=== PATIENT | female | born 1980 | race Asian ===

== ENCOUNTER → 2016-11-28 | Outpatient (CLI) | payer BC ==
[2015-03-08 23:28] VITALS: BP 106/69
--- NOTE | 2016-11-28 16:31 | RAD ---
DATE: November 28, 2016 EXAM: DIGITAL DIAGNOSTIC BILATERAL, ultrasound BREAST RIGHT HISTORY: Right breast nodules. Follow-up study. COMPARISON: Mammograms dated November 17, 2015 and October 10, 2014.] Right breast sonogram dated October 20, 2014 and November 17, 2015 and May 14, 2016. This study was interpreted with the benefit of Computerized Aided Detection (CAD). Bilateral diagnostic mammographic FINDINGS: The breast parenchyma is very dense. Right breast nodularity is stable. There are no new dominant suspicious masses, suspicious microcalcifications or evidence of architectural distortion. Right breast sonogram: Limited sonography of the right breast and right axillary region was performed. At the 12:00 position 6 cm from the nipple, a hypoechoic nodule is seen measuring 12 mm in greatest dimension. This has not changed. At the 4:00 position 5 cm and the nipple, a similar hypoechoic nodule is seen measuring 8 mm in size. This has not changed. At the 10:00 position 3 cm from the nipple, a similar hypoechoic nodule is seen measuring 9 mm in greatest dimension. This has not changed. At the 11:00 position 7 cm from the nipple, a similar hypoechoic nodule is seen measuring 11 mm in greatest dimension. This has not changed. No focal sonographic abnormality of the right axillary region is seen. IMPRESSION: There are no mammographic indicators for malignancy. Stable mammogram. Stable similar hypoechoic solid nodules of the right breast consistent with fibroadenomas. Recommend a follow-up right breast sonogram in one year to ensure stability of these nodules. BI-RADS CATEGORY: 3 PROBABLE BENIGN-SHORT TERM F/U RECOMMENDED FOLLOW-UP: 12M 12 MONTH FOLLOW-UP right breast sonogram. PQRS compliance statement: Patient information was entered into a reminder system with a target due date November 29, 2017 for the next right breast sonogram. The patient is 36 years old and therefore recommend routine screening mammography at age 40 or earlier if clinically needed. Mammography is a sensitive method for finding small breast cancers, but it does not detect them all and is not a substitute for careful clinical examination. A negative mammogram does not negate a clinically suspicious finding and should not result in delay in biopsying a clinically suspicious abnormality. "Our facility is accredited by the [employer] Mammography Program." The patient's breast density may affect the ability of mammography to detect breast cancer. There are 4 categories of breast density, A, B, C and D. Breast density A means that most of the breast tissue is replaced with adipose tissue and therefore is not dense. Breast density B means that the breast tissue is mildly dense and scattered. Breast density C means that the breast tissue is heterogeneously dense. Breast density D means that the breast tissue is very dense. Breast densities especially C and D may decrease the sensitivity of mammography to detect breast cancer. Therefore, the patient may benefit from 3-D breast mammography (3D breast tomography) as a part of their screening mammogram. Insurance may or may not pay for this additional imaging. The patient's breast density based on today's mammogram is category D.
== END | disposition home or self-care (01) ==
LOC: KCIC MAMMO 14:49
PROVIDERS: ATTEND Physician Assistant Medical
DX: R92.8 Other abnormal and inconclusive findings on diagnostic imaging of breast (principal); N63 Unspecified lump in breast
CPT/HCPCS: 76641; G0204; 77066

== ENCOUNTER → 2017-11-28 | Outpatient (CLI) | payer BC | END | disposition home or self-care (01) | LOC: KCIC CT 11:04 | DX: N20.0 Calculus of kidney (principal); N83.02 Follicular cyst of left ovary; N83.01 Follicular cyst of right ovary | CPT/HCPCS: 74176 ==

== ENCOUNTER → 2017-12-08 | Outpatient (CLI) | payer BC | END | disposition home or self-care (01) | LOC: KCIC US 11:36 | DX: N63.10 Unspecified lump in the right breast, unspecified quadrant (principal) | CPT/HCPCS: 76641 ==

== ENCOUNTER 2018-01-15 20:56 | Emergency (ER) | payer BC ==
[2018-01-15 21:20] LABS: URINE HCG POC HCG NEGATIVE (Negative)
[2018-01-15 21:24] LABS: BILIRUBIN,URINE NEGATIVE (NEG); CLARITY,URINE CLEAR; COLOR,URINE YELLOW; GLUCOSE,URINE NEGATIVE (NEG); NITRITE,URINE NEGATIVE (NEG); PH,URINE 6.5; PROTEIN,URINE NEGATIVE (NEG-TRACE); UROBILINOGEN,URINE 0.2 mg/dL (0.2 mg/dL)
[2018-01-15 21:31] LABS: BACTERIA,URINE FEW /HPF (0-FEW); SQUAMOUS EPITHELIAL CELL,UR FEW /LPF
[2018-01-15 21:37] LABS: ADD MAN DIFF? NO
[2018-01-15 21:42] LABS: BASO % 0 % (0-3); EOS # 0.1 x10^3/uL (0.0-0.7); EOS % 1 % (0-3); HEMATOCRIT 37.6 % (36.0-47.0); LYMPH # 3.2 x10^3/uL (1.0-4.8); LYMPH % 37 % (24-48); MEAN CORPUSCULAR HEMOGLOBIN 30 pg (25-35); MEAN CORPUSCULAR HGB CONC 35 g/dL (31-37); MEAN CORPUSCULAR VOLUME 88 fL (79-100); MONO # 0.5 x10^3/uL (0.0-1.1); MONO % 6 % (0-9); NEUT # 4.8 x10^3uL (1.8-7.7); NEUT % 56 % (31-73); PLATELET COUNT 226 x10^3/uL (140-400); RED BLOOD COUNT 4.28 x10^6/uL (3.50-5.40); RED CELL DISTRIBUTION WIDTH 12.9 % (11.5-14.5); WHITE BLOOD COUNT 8.5 x10^3/uL (4.0-11.0)
[2018-01-15] MEDS: ONDANSETRON PF 4 MG/2 ML VIAL. IV (21:43)
[2018-01-15] MEDS: fentaNYL PF VIAL 100 MCG/2 ML VIAL IV (21:43)
[2018-01-15 21:57] LABS: ANION GAP 8 (6-14); BLOOD UREA NITROGEN 8 mg/dL (7-20); CALCIUM 9.7 mg/dL (8.5-10.1); CARBON DIOXIDE 28 mmol/L (21-32); CHLORIDE 104 mmol/L (98-107); CREATININE 0.7 mg/dL (0.6-1.0); GFR 94.2; GLUCOSE 94 mg/dL (70-99); POTASSIUM 3.4 mmol/L (3.5-5.1); SODIUM 140 mmol/L (136-145)
[2018-01-15] MEDS ORDERED: CONTRAST GIVEN MC (22:00)
[2018-01-15] MEDS: IOHEXOL 300 MG/ML 100ML VIAL. IV (22:08)
[2018-01-15] MEDS ORDERED: diphenhydrAMINE 50 MG/ML VIAL IVP (22:30)
== END 2018-01-16 01:40 | disposition home or self-care (01) ==
LOC: ER 01-16 01:40
DX: R10.2 Pelvic and perineal pain (principal); R10.31 Right lower quadrant pain
CPT/HCPCS: 36415; 74177; 76856; 80048; 81001; 81025; 85025; 87086; 96374; 96375; 99285-25; J2405; J3010; Q9967

== ENCOUNTER 2019-08-25 19:44 | Emergency (ER) | payer BC ==
[~2019-08-25] VITALS: Ht 157.5 cm; Wt 44.5 kg
[~2019-08-25 19:44] MED LIST: TRAM50TA PO
[2019-08-25 21:00] VITALS: BP 123/76
[2019-08-25 21:02] LABS: BASO % 0 % (0-3); EOS # 0.1 x10^3/uL (0.0-0.7); EOS % 1 % (0-3); HEMATOCRIT 39.1 % (36.0-47.0); HEMOGLOBIN 13.3 g/dL (12.0-15.5); LYMPH # 2.8 x10^3/uL (1.0-4.8); LYMPH % 32 % (24-48); MEAN CORPUSCULAR HEMOGLOBIN 30 pg (25-35); MEAN CORPUSCULAR HGB CONC 34 g/dL (31-37); MEAN CORPUSCULAR VOLUME 88 fL (79-100); MONO # 0.6 x10^3/uL (0.0-1.1); MONO % 7 % (0-9); NEUT # 5.4 x10^3/uL (1.8-7.7); NEUT % 60 % (31-73); PLATELET COUNT 209 x10^3/uL (140-400); RED BLOOD COUNT 4.44 x10^6/uL (3.50-5.40); RED CELL DISTRIBUTION WIDTH 13.9 % (11.5-14.5); WHITE BLOOD COUNT 8.9 x10^3/uL (4.0-11.0)
[2019-08-25 21:11] LABS: PROTHROMBIN TIME PATIENT 13.3 SEC (11.7-14.0)
[2019-08-25 21:14] LABS: BILIRUBIN,URINE NEGATIVE (NEG); CLARITY,URINE CLEAR; COLOR,URINE YELLOW; NITRITE,URINE NEGATIVE (NEG); PROTEIN,URINE NEGATIVE (NEG-TRACE); UROBILINOGEN,URINE 0.2 mg/dL (0.2 mg/dL)
[2019-08-25 21:15] LABS: CALCIUM 9.9 mg/dL (8.5-10.1); CREATININE 0.7 mg/dL (0.6-1.0); D-DIMER 0.36 ug/mlFEU (0.00-0.50); GFR 93.2; POTASSIUM 3.2 mmol/L (3.5-5.1)
[2019-08-25 21:20] LABS: BACTERIA,URINE MANY /HPF (0-FEW); RBC,URINE OCC /HPF (0-2); WBC,URINE >40 /HPF (0-4)
[2019-08-25 21:21] LABS: TOTAL BILIRUBIN 0.8 mg/dL (0.2-1.0); TOTAL PROTEIN 8.2 g/dL (6.4-8.2)
[2019-08-25 21:21] LABS: SQUAMOUS EPITHELIAL CELL,UR MANY /LPF
[2019-08-25] MEDS ORDERED: CEPH-264 PO (22:38)
--- NOTE | 2019-08-25 22:38 | PHYS DOC ---
Past Medical History Past Medical History: No Pertinent History (TAE ROMERO APRN) Past Surgical History: No Surgical History (TAE ROMERO APRN) Alcohol Use: None Drug Use: None (TAE ROMERO APRN) Attending Signature I have participated in the care of this patient and I have reviewed and agree with all pertinent clinical information above including history, exam, and recommendations. (ERICKSON JIMENEZ MD) Adult General Chief Complaint Chief Complaint: CHEST PAIN HPI HPI Patient is a 39 year old female who presents to the emergency department with complaints of shortness of breath, burning sensation in her chest, and inability to take a deep breath for a period of 10 minutes today. Patient states she has been having intermittent pain with deep breaths for the last 2 weeks. She denies any nausea, vomiting, abdominal pain, fever, cough, or recent travel. She currently denies any pain at this time. She denies any alleviating or exacerbating factors, she states that the pain does comes on all of a sudden. Patient denies any dizziness, headache, numbness, tingling, or weakness. She reports that she has had a decreased appetite since having a laparoscopic hysterectomy on July 16, 2019. (TAE ROMERO APRN) Review of Systems Review of Systems Constitutional: Denies fever or chills [] Eyes: Denies change in visual acuity, redness, or eye pain [] HENT: Denies nasal congestion or sore throat [] Respiratory: see HPI Cardiovascular: No additional information not addressed in HPI [] GI: Denies abdominal pain, nausea, vomiting, or diarrhea [] : Denies dysuria or hematuria [] Musculoskeletal: Denies back pain or joint pain [] Integument: Denies rash or skin lesions [] Neurologic: Denies headache, focal weakness or sensory changes [] Complete systems were reviewed and found to be within normal limits, except as documented in this note. (TAE ROMERO APRN) Allergies Allergies Allergies Coded Allergies Type Severity Reaction Last Updated Verified No Known Drug Allergies 01/26/15 No (ERICKSON JIMENEZ MD) Physical Exam Physical Exam Constitutional: Well developed, well nourished, no acute distress, non-toxic appearance. [] HENT: Normocephalic, atraumatic, bilateral external ears normal, nose normal. [] Eyes: PERRLA, EOMI, conjunctiva normal, no discharge. [] Neck: Normal range of motion, no stridor. [] Cardiovascular:Heart rate regular rhythm, no murmur [] Lungs & Thorax: Bilateral breath sounds clear to auscultation [] Abdomen: Bowel sounds normal, soft, no tenderness, no masses, no pulsatile masses. [] Skin: Warm, dry, no erythema, no rash. [] Back: No tenderness Extremities: No tenderness, no cyanosis, no clubbing, ROM intact, no edema. [] Neurologic: Alert and oriented X 3, no focal deficits noted. [] Psychologic: Affect normal, judgement normal, mood normal. [] (TAE ROMERO APRN) Current Patient Data Vital Signs Vital Signs Date Time Temp Pulse Resp B/P (MAP) Pulse Ox O2 Delivery O2 Flow Rate FiO2 08/25/19 21:00 70 16 123/76 (92) 100 Room Air 08/25/19 19:56 97.9 97.9 (ERICKSON JIMENEZ MD) Lab Values Laboratory Tests Test 08/25/19 20:00 08/25/19 21:00 White Blood Count 8.9 x10^3/uL (4.0-11.0) Red Blood Count 4.44 x10^6/uL (3.50-5.40) Hemoglobin 13.3 g/dL (12.0-15.5) Hematocrit 39.1 % (36.0-47.0) Mean Corpuscular Volume 88 fL (79-100) Mean Corpuscular Hemoglobin 30 pg (25-35) Mean Corpuscular Hemoglobin Concent 34 g/dL (31-37) Red Cell Distribution Width 13.9 % (11.5-14.5) Platelet Count 209 x10^3/uL (140-400) Neutrophils (%) (Auto) 60 % (31-73) Lymphocytes (%) (Auto) 32 % (24-48) Monocytes (%) (Auto) 7 % (0-9) Eosinophils (%) (Auto) 1 % (0-3) Basophils (%) (Auto) 0 % (0-3) Neutrophils # (Auto) 5.4 x10^3/uL (1.8-7.7) Lymphocytes # (Auto) 2.8 x10^3/uL (1.0-4.8) Monocytes # (Auto) 0.6 x10^3/uL (0.0-1.1) Eosinophils # (Auto) 0.1 x10^3/uL (0.0-0.7) Basophils # (Auto) 0.0 x10^3/uL (0.0-0.2) Prothrombin Time 13.3 SEC (11.7-14.0) Prothrombin Time INR 1.0 (0.8-1.1) Activated Partial Thromboplast Time 39 SEC (24-38) H D-Dimer (Gerda) 0.36 ug/mlFEU (0.00-0.50) Sodium Level 138 mmol/L (136-145) Potassium Level 3.2 mmol/L (3.5-5.1) L Chloride Level 102 mmol/L (98-107) Carbon Dioxide Level 24 mmol/L (21-32) Anion Gap 12 (6-14) Blood Urea Nitrogen 5 mg/dL (7-20) L Creatinine 0.7 mg/dL (0.6-1.0) Estimated GFR (Cockcroft-Gault) 93.2 BUN/Creatinine Ratio 7 (6-20) Glucose Level 122 mg/dL (70-99) H Calcium Level 9.9 mg/dL (8.5-10.1) Magnesium Level 2.0 mg/dL (1.8-2.4) Total Bilirubin 0.8 mg/dL (0.2-1.0) Aspartate Amino Transferase (AST) 24 U/L (15-37) Alanine Aminotransferase (ALT) 26 U/L (14-59) Alkaline Phosphatase 51 U/L (46-116) Troponin I Quantitative < 0.017 ng/mL (0.000-0.055) Total Protein 8.2 g/dL (6.4-8.2) Albumin 4.0 g/dL (3.4-5.0) Albumin/Globulin Ratio 1.0 (1.0-1.7) Urine Collection Type Unknown Urine Color Yellow Urine Clarity Clear Urine pH 7.0 Urine Specific Brooten <=1.005 Urine Protein Negative mg/dL (NEG-TRACE) Urine Glucose (UA) Negative mg/dL (NEG) Urine Ketones (Stick) Negative mg/dL (NEG) Urine Blood Large (NEG) Urine Nitrite Negative (NEG) Urine Bilirubin Negative (NEG) Urine Urobilinogen Dipstick 0.2 mg/dL (0.2 mg/dL) Urine Leukocyte Esterase Large (NEG) Urine RBC Occ /HPF (0-2) Urine WBC >40 /HPF (0-4) Urine Squamous Epithelial Cells Many /LPF Urine Bacteria Many /HPF (0-FEW) Laboratory Tests 08/25/19 20:00 Laboratory Tests 08/25/19 20:00 (ERICKSON JIMENEZ MD) EKG EKG 1951- SR rate 81, no STEMI read by Dr. Jimenez. [] (TAE ROMERO APRN) Radiology/Procedures Radiology/Procedures PROCEDURE: CHEST PA & LATERAL PA and lateral chest x-rays HISTORY: Shortness of breath and dizziness. FINDINGS: Heart size is normal. Mediastinal silhouette is normal. No pneumothorax, pulmonary opacities or pleural effusions. Bones are unremarkable. IMPRESSION: No acute process.[] (TAE ROMERO APRN) Course & Med Decision Making Course & Med Decision Making Pertinent Labs and Imaging studies reviewed. (See chart for details) [] (TAE ROMERO APRN) Dragon Disclaimer Dragon Disclaimer This electronic medical record was generated, in whole or in part, using a voice recognition dictation system. (TAE ROMERO APRN) Departure Departure Impression: Primary Impression: Urinary tract infection Additional Impression: Nonspecific chest pain Disposition: HOME, SELF-CARE Condition: STABLE Referrals: NO PCP (PCP) Patient Instructions: Chest Pain (Nonspecific), [id number], Urinary Tract Infection, [id number] Additional Instructions: Fill prescription(s) and use as directed. Avoid bladder irritants such as caffeine, carbonation, and spicy foods. Increase clear fluids. Follow up with your primary care doctor if symptoms persist, return to the ER if symptoms worsen. Scripts Cephalexin (KEFLEX) 500 Mg Capsule 1 CAP PO BID for 7 Days, #14 CAP 0 Refills Prov: TAE ROMERO APRN 08/25/19 Problem Qualifiers Primary Impression: Urinary tract infection Urinary tract infection type: site unspecified Hematuria presence: without hematuria Qualified Codes: N39.0 - Urinary tract infection, site not specified TAE ROMERO APRN Aug 25, 2019 22:38 ERICKSON JIMENEZ MD Aug 26, 2019 00:55
--- NOTE | 2019-08-25 23:41 | RAD ---
PA and lateral chest x-rays HISTORY: Shortness of breath and dizziness. FINDINGS: Heart size is normal. Mediastinal silhouette is normal. No pneumothorax, pulmonary opacities or pleural effusions. Bones are unremarkable. IMPRESSION: No acute process. Electronically signed by: Mark Stuart MD (08/25/2019 11:38 PM) [facility]
--- NOTE | 2019-08-26 07:29 | EKG ---
[facility] [address] [place] [address] Test Date: 2019-08-25 Test Time: 19:52:29 Pat Name: RONDA ABARCA Department: Patient ID: [facility]-[id number] Room: Gender: F Confidential Secretary: ANTHONY AGUERO : 1980 Requested By: TAE ROMERO Order Number: [id number] Reading MD: Measurements Intervals [place] Rate: 81 P: 69 CO: 146 QRS: 59 QRSD: 74 T: 27 QT: 364 QTc: 428 Interpretive Statements SINUS RHYTHM LOW LIMB LEAD VOLTAGE BORDERLINE ECG No previous ECG available for comparison
== END 2019-08-25 23:08 | disposition home or self-care (01) ==
LOC: ER 19:44
DX: N39.0 Urinary tract infection, site not specified (principal); R07.89 Other chest pain
CPT/HCPCS: 36415; 71046; 80053; 81001; 83735; 84484; 85025; 85379; 85610; 85730; 87086; 93005; 99285-25

== ENCOUNTER 2020-08-01 16:18 | Inpatient (IN) | payer BC ==
[~2020-08-01] VITALS: Ht 160 cm; Wt 48.0 kg
[~2020-08-01 16:18] MED LIST changes: +CEPH-264 PO
[2020-08-01] MEDS ORDERED: IV NORMAL SALINE 1000ML BAG 1,000 ML IV SCH (16:46)
[2020-08-01] MEDS ORDERED: ONDANSETRON PF 4 MG/2 ML VIAL. IVP ONE (17:00)
[2020-08-01] MEDS ORDERED: ACETAMINOPHEN 500 MG TABLET PO ONE (17:00)
[2020-08-01] MEDS ORDERED: fentaNYL PF VIAL 100 MCG/2 ML VIAL IVP ONE (17:00)
--- NOTE | 2020-08-01 17:00 | PHYS DOC ---
Past Medical History Past Medical History: No Pertinent History Past Surgical History: Hysterectomy Smoking Status: Never Smoker Alcohol Use: None Drug Use: None General Adult EDM: Chief Complaint: ABDOMINAL PAIN HPI: HPI: Patient is a 40 year old female who presents with patient states for the last 4 days she has had right lower quadrant pain that wraps around to her right back. She states that 2 days ago she went to an urgent care and they diagnosed her with a urinary tract infection and put her on ciprofloxacin. She states she is still having the pain is not helping. Patient states that it is sharp and she rates it at an 8 out of 10. She states she is not been taking any medications to help with the pain. She states she has not had a bowel movement for the last 3 days. Patient's past medical history is a hysterectomy. She takes no medications daily. Patient states that it does burn with urination. Patient is running a fever of 100.4 in the ED. Patient denies chest pain, cough, shortness of breath, headache, dizziness, vomiting, nausea, numbness or tingling, diarrhea. Review of Systems: Review of Systems: Constitutional: + fever or chills. [] Eyes: Denies change in visual acuity. [] HENT: Denies nasal congestion or sore throat. [] Respiratory: Denies cough or shortness of breath. [] Cardiovascular: Denies chest pain or edema. [] GI: Positive for right lower abdominal pain, denies nausea, vomiting, bloody stools or diarrhea. [] : Denies dysuria. [] Musculoskeletal: Right flank back pain or joint pain. [] Integument: Denies rash. [] Neurologic: Denies headache, focal weakness or sensory changes. [] Endocrine: Denies polyuria or polydipsia. [] Lymphatic: Denies swollen glands. [] Psychiatric: Denies depression or anxiety. [] Heart Score: Risk Factors: Risk Factors: DM, Current or recent (<one month) smoker, HTN, HLP, family history of CAD, obesity. Risk Scores: Score 0 - 3: 2.5% MACE over next 6 weeks - Discharge Home Score 4 - 6: 20.3% MACE over next 6 weeks - Admit for Clinical Observation Score 7 - 10: 72.7% MACE over next 6 weeks - Early Invasive Strategies Allergies: Allergies: Allergies Coded Allergies Type Severity Reaction Last Updated Verified No Known Drug Allergies 3/19/15 No Physical Exam: PE: Constitutional: Well developed, well nourished, no acute distress, non-toxic appearance. [] HENT: Normocephalic, atraumatic, bilateral external ears normal, oropharynx moist, no oral exudates, nose normal. [] Eyes: PERRLA, EOMI, conjunctiva normal, no discharge. [] Neck: Normal range of motion, no tenderness, supple, no stridor. [] Cardiovascular:Heart rate regular rhythm, no murmur [] Lungs & Thorax: Bilateral breath sounds clear to auscultation [] Abdomen: Bowel sounds normal, soft, right lower tenderness, no masses, no pulsatile masses. [] Skin: Warm, dry, no erythema, no rash. [] Back: No tenderness, no CVA tenderness. [] Extremities: No tenderness, no cyanosis, no clubbing, ROM intact, no edema. [] Neurologic: Alert and oriented X 3, normal motor function, normal sensory function, no focal deficits noted. [] Psychologic: Affect normal, judgement normal, mood normal. [] Current Patient Data: Vital Signs: Vital Signs Date Time Temp Pulse Resp B/P (MAP) Pulse Ox O2 Delivery O2 Flow Rate FiO2 08/01/20 16:18 100.4 94 119/63 (81) 99 Room Air 100.4 EKG: EKG: [] Radiology/Procedures: Radiology/Procedures: [] Impression: [facility] [address] [place], [place] [id number] IMAGING REPORT Signed PATIENT: RONDA ABARCA ACCOUNT: [id number] : 1980 LOCATION: ER AGE: 40 SEX: F EXAM STATUS: REG ER ORD. PHYSICIAN: PERRY HENDRICKS APRN REASON: RT FLANK PAIN, PAIN W URINATION, UTI PROCEDURE: CT ABDOMEN PELVIS WO CONTRAST CT Abdomen and Pelvis without contrast History: Right flank pain, pain with urination Technique: Noncontrast CT imaging was performed of the abdomen and pelvis. Multiplanar images are reviewed. Exposure: One or more of the following individualized dose reduction techniques were utilized for this examination: 1. Automated exposure control 2. Adjustment of the mA and/or kV according to patient size 3. Use of iterative reconstruction technique. Comparison: January 15, 2018 Findings: No urolithiasis or hydronephrosis is identified. Accurate evaluation of abdominal visceral organs is limited without intravenous contrast. There is no obvious abnormality of the spleen, liver, or pancreas. Gallbladder is present without obvious intraluminal abnormality by CT. There is no adrenal nodularity. Accurate evaluation of bowel is limited without oral contrast. There is retained stool greater of the right colon. There is appearance of degree of possible small bowel wall thickening such as in the right abdomen. Normal caliber appendix is visualized without adjacent inflammatory change.. There are hypodense foci of the adnexal regions bilaterally, right greater than left, on the right about 4.4 cm and on the left about 2.9 cm. Impression: 1. There is no hydronephrosis or urolithiasis. There are hypodense foci of the adnexal regions bilaterally, right greater than left, statistically more likely due to cysts. 2. There is retained stool greater of the right colon. There is appearance of degree of small bowel wall thickening in the right abdomen as could be seen with enteritis in the appropriate clinical setting. There is no CT evidence of acute appendicitis. Electronically signed by: Anita Power MD (08/01/2020 5:26 PM) [id number] DICTATED and SIGNED BY: ANITA POWER MD DATE: 08/01/201725 Course & Med Decision Making: Course & Med Decision Making Pertinent Labs and Imaging studies reviewed. (See chart for details) Alert and oriented x4. Ambulatory with steady gait. Patient denies anything that makes it worse or better. Speaks in full complete sentences. Patient has right lower abdominal pain with palpation. There is no rebound tenderness. No CVA tenderness. Skin pink warm and dry. Patient is febrile. Urinalysis does look to have a very mild UTI. CT shows: Impression: 1. There is no hydronephrosis or urolithiasis. There are hypodense foci of the adnexal regions bilaterally, right greater than left, statistically more likely due to cysts. 2. There is retained stool greater of the right colon. There is appearance of degree of small bowel wall thickening in the right abdomen as could be seen with enteritis in the appropriate clinical setting. There is no CT evidence of acute appendicitis. I have spoken to Dr. Wright for admission. I will consult GI. [] Dom Disclaimer: Dom Disclaimer: This electronic medical record was generated, in whole or in part, using a voice recognition dictation system. Departure Departure Impression: Primary Impression: Right lower quadrant abdominal pain Disposition: ADMITTED INPATIENT Admitting Physician: BRISEYDA Condition: STABLE Referrals: NO PCP (PCP) Justicifation of Admission Dx: Justifications for Admission: Justification of Admission Dx: Yes Comments: abdomen pain PERRY HENDRICKS SUBSCRIPTION AGENT Aug 01, 2020 17:00
[2020-08-01 17:01] LABS: BASO % 0 % (0-3); EOS % 0 % (0-3); HEMATOCRIT 39.8 % (36.0-47.0); HEMOGLOBIN 13.6 g/dL (12.0-15.5); LYMPH # 0.9 x10^3/uL (1.0-4.8); LYMPH % 9 % (24-48); MEAN CORPUSCULAR HEMOGLOBIN 30 pg (25-35); MEAN CORPUSCULAR HGB CONC 34 g/dL (31-37); MEAN CORPUSCULAR VOLUME 89 fL (79-100); MONO # 0.4 x10^3/uL (0.0-1.1); MONO % 4 % (0-9); NEUT # 9.5 x10^3/uL (1.8-7.7); NEUT % 87 % (31-73); PLATELET COUNT 165 x10^3/uL (140-400); RED BLOOD COUNT 4.47 x10^6/uL (3.50-5.40); RED CELL DISTRIBUTION WIDTH 12.9 % (11.5-14.5); WHITE BLOOD COUNT 10.9 x10^3/uL (4.0-11.0)
[2020-08-01 17:05] LABS: BILIRUBIN,URINE NEGATIVE (NEG); CLARITY,URINE CLEAR; COLOR,URINE YELLOW; NITRITE,URINE NEGATIVE (NEG); PROTEIN,URINE NEGATIVE (NEG-TRACE); UROBILINOGEN,URINE 0.2 mg/dL (0.2 mg/dL)
[2020-08-01 17:09] LABS: BACTERIA,URINE FEW /HPF (0-FEW); RBC,URINE 0 /HPF (0-2); SQUAMOUS EPITHELIAL CELL,UR MANY /LPF
[2020-08-01 17:10] LABS: PROTHROMBIN TIME PATIENT 12.8 SEC (11.7-14.0)
[2020-08-01 17:18] LABS: CALCIUM 9.2 mg/dL (8.5-10.1); CREATININE 0.7 mg/dL (0.6-1.0); GFR 92.7; POTASSIUM 3.3 mmol/L (3.5-5.1)
--- NOTE | 2020-08-01 17:29 | RAD ---
CT Abdomen and Pelvis without contrast History: Right flank pain, pain with urination Technique: Noncontrast CT imaging was performed of the abdomen and pelvis. Multiplanar images are reviewed. Exposure: One or more of the following individualized dose reduction techniques were utilized for this examination: 1. Automated exposure control 2. Adjustment of the mA and/or kV according to patient size 3. Use of iterative reconstruction technique. Comparison: January 15, 2018 Findings: No urolithiasis or hydronephrosis is identified. Accurate evaluation of abdominal visceral organs is limited without intravenous contrast. There is no obvious abnormality of the spleen, liver, or pancreas. Gallbladder is present without obvious intraluminal abnormality by CT. There is no adrenal nodularity. Accurate evaluation of bowel is limited without oral contrast. There is retained stool greater of the right colon. There is appearance of degree of possible small bowel wall thickening such as in the right abdomen. Normal caliber appendix is visualized without adjacent inflammatory change.. There are hypodense foci of the adnexal regions bilaterally, right greater than left, on the right about 4.4 cm and on the left about 2.9 cm. Impression: 1. There is no hydronephrosis or urolithiasis. There are hypodense foci of the adnexal regions bilaterally, right greater than left, statistically more likely due to cysts. 2. There is retained stool greater of the right colon. There is appearance of degree of small bowel wall thickening in the right abdomen as could be seen with enteritis in the appropriate clinical setting. There is no CT evidence of acute appendicitis. Electronically signed by: Manfred Smith MD (08/01/2020 5:26 PM) [id number]
[2020-08-01 17:33] LABS: ALBUMIN 4.1 g/dL (3.4-5.0); ALBUMIN/GLOBULIN RATIO 1.1 (1.0-1.7); TOTAL BILIRUBIN 1.1 mg/dL (0.2-1.0); TOTAL PROTEIN 7.8 g/dL (6.4-8.2)
[2020-08-01 17:39] LABS: % BANDS 1 % (0-9); % LYMPHS 8 % (24-48); % MONOS 4 % (0-10); % SEGS 87 % (35-66); PLT ESTIMATE ADEQUATE (ADEQUATE)
[2020-08-01] MEDS: IV NORMAL SALINE 1000ML BAG 1,000 ML IV SCH ×2 (18:08→22:51)
[2020-08-01] MEDS ORDERED: ONDANSETRON PF 4 MG/2 ML VIAL. IV PRN (18:15)
[2020-08-01] MEDS ORDERED: PIPERACILLIN/TAZOBACTAM 3.375 GM in IV NORMAL SALINE 50ML 50 ML IV ONE (18:15)
[2020-08-01] MEDS ORDERED: POTASSIUM CHLORIDE 20 MEQ TABLET.ER. PO PRN (20:30)
[2020-08-01] MEDS ORDERED: ELECTROLYTE (NON-ICU) PROTOCOL MC PRN (20:30)
[2020-08-01] MEDS ORDERED: DEXTROSE 50% 25 GM / 50ML DISP.SYRIN. IV PRN (20:30)
[2020-08-01] MEDS ORDERED: POTASSIUM CHLORIDE 10MEQ 100 ML IV PRN (20:30)
[2020-08-01] MEDS ORDERED: POTASSIUM CHLORIDE 10MEQ 100 ML IV SCH (20:30)
[2020-08-01] MEDS ORDERED: MAGNESIUM SULFATE 2GM 50 ML IV SCH (20:30)
[2020-08-01] MEDS ORDERED: MAGNESIUM OXIDE 400 MG TABLET PO SCH (21:00)
[2020-08-01 22:42] VITALS: BP 91/54
[2020-08-01] MEDS: POLYETHYLENE GLYCOL 3350 17 GM PACKET. PO SCH (22:51)
[2020-08-01] MEDS: fentaNYL PF VIAL 100 MCG/2 ML VIAL IV PRN (22:54)
[2020-08-01] MEDS ORDERED: ACETAMINOPHEN 325 MG TABLET. PO PRN (23:15)
--- NOTE | 2020-08-01 23:30 | NUR ---
ADMIT NOTE The patient, RONDA ABARCA, 40 y/o, F admitted by GABRIELLE JEFFERSON MD, was given written information regarding hospital policies, unit procedures and contact persons. Patient afebrile, A&O, and VSS with moderate c/o pain upon admission. Patient's allergies verified and patient reports taking no daily medications. Plan of care discussed and admit packet reviewed with patient; daughter on phone to help translate during admission. Patient in bed, call light within reach, and no other needs voiced at this time.
--- NOTE | 2020-08-02 00:07 | NUR ---
Scheduled Miralax non-administered at this time d/t previous dose given approximately an hour ago.
[2020-08-02 02:54] VITALS: BP 78/53
[2020-08-02 04:16] LABS: BASO % 0 % (0-3); EOS % 0 % (0-3); HEMATOCRIT 36.6 % (36.0-47.0); HEMOGLOBIN 12.7 g/dL (12.0-15.5); LYMPH # 0.7 x10^3/uL (1.0-4.8); LYMPH % 9 % (24-48); MEAN CORPUSCULAR HEMOGLOBIN 31 pg (25-35); MEAN CORPUSCULAR HGB CONC 35 g/dL (31-37); MEAN CORPUSCULAR VOLUME 89 fL (79-100); MONO # 0.5 x10^3/uL (0.0-1.1); MONO % 6 % (0-9); NEUT % 85 % (31-73); PLATELET COUNT 144 x10^3/uL (140-400); RED BLOOD COUNT 4.11 x10^6/uL (3.50-5.40); RED CELL DISTRIBUTION WIDTH 12.9 % (11.5-14.5); WHITE BLOOD COUNT 8.3 x10^3/uL (4.0-11.0)
[2020-08-02 04:32] LABS: CALCIUM 8.6 mg/dL (8.5-10.1); CREATININE 0.7 mg/dL (0.6-1.0); GFR 92.7; PHOSPHORUS 2.7 mg/dL (2.6-4.7); POTASSIUM 3.2 mmol/L (3.5-5.1)
[2020-08-02] MEDS: POLYETHYLENE GLYCOL 3350 17 GM PACKET. PO SCH ×4 (05:13→17:40)
[2020-08-02] MEDS: fentaNYL PF VIAL 100 MCG/2 ML VIAL IV PRN (05:14)
[2020-08-02 07:00] VITALS: BP 90/48
--- NOTE | 2020-08-02 07:54 | PDOC1 ---
History and Physical Date of Service: DOS: DATE: 08/02/20 TIME: 07:49 Chief Complaint: Chief Complain: Past Medical History: No Pertinent History Past Surgical History: Hysterectomy Smoking Status: Never Smoker Alcohol Use: None Drug Use: None History of Present Illness: HPI: 40 year old female who presents with patient states for the last 4 days she has had right lower quadrant pain that wraps around to her right back. She states that 2 days ago she went to an urgent care and they diagnosed her with a urinary tract infection and put her on ciprofloxacin. She states she is still having the pain is not helping. Patient states that it is sharp and she rates it at an 8 out of 10. She states she is not been taking any medications to help with the pain. She states she has not had a bowel movement for the last 3 days. Patient's past medical history is a hysterectomy. She takes no medications daily. Patient states that it does burn with urination. Patient is running a fever of 100.4 in the ED. Patient denies chest pain, cough, shortness of breath, headache, dizziness, vomiting, nausea, numbness or tingling, diarrhea Past Medical/Surgical History: PMH/PSH: Past Medical History: Right lumpectomy for noncancerous lesion Past Surgical History: Hysterectomy and right ovarian resection Allergies: Allergies: Coded Allergies: No Known Drug Allergies (Unverified , 01/26/15) Family History: Family History: Reviewed and none reported Social History: Social History: 40 year old female who presents with patient states for the last 4 days she has had right lower quadrant pain that wraps around to her right back. She states that 2 days ago she went to an urgent care and they diagnosed her with a urinary tract infection and put her on ciprofloxacin. She states she is still having the pain is not helping. Patient states that it is sharp and she rates it at an 8 out of 10. She states she is not been taking any medications to help with the pain. She states she has not had a bowel movement for the last 3 days. Patient's past medical history is a hysterectomy. She takes no medications daily. Patient states that it does burn with urination. Patient is running a fever of 100.4 in the ED. Patient denies chest pain, cough, shortness of breath, headache, dizziness, vomiting, nausea, numbness or tingling, diarrhea Current Medications: Current Medications Current Medications Sodium Chloride 1,000 ml @ 1,000 mls/hr Q1H IV Last administered on 08/01/20at 17:19; Start 08/01/20 at 16:46; Stop 08/01/20 at 17:45; Status DC Fentanyl Citrate (Fentanyl 2ml Vial) 50 mcg 1X ONCE IVP Last administered on 08/01/20at 17:06; Start 08/01/20 at 17:00; Stop 08/01/20 at 17:01; Status DC Ondansetron HCl (Zofran) 4 mg 1X ONCE IVP Last administered on 08/01/20at 17:06; Start 08/01/20 at 17:00; Stop 08/01/20 at 17:01; Status DC Acetaminophen (Tylenol) 1,000 mg 1X ONCE PO Last administered on 08/01/20at 17:07; Start 08/01/20 at 17:00; Stop 08/01/20 at 17:01; Status DC Piperacillin Sod/ Tazobactam Sod 3.375 gm/Sodium Chloride 50 ml @ 100 mls/hr 1X ONCE IV Last administered on 08/01/20at 19:00; Start 08/01/20 at 18:15; Stop 08/01/20 at 18:44; Status DC Ondansetron HCl (Zofran) 4 mg PRN Q8HRS PRN IV NAUSEA/VOMITING; Start 08/01/20 at 18:15; Stop 08/02/20 at 18:14 Fentanyl Citrate (Fentanyl 2ml Vial) 50 mcg PRN Q1HR PRN IV PAIN Last administered on 08/02/20at 05:14; Start 08/01/20 at 18:15; Stop 08/02/20 at 18:14 Sodium Chloride 1,000 ml @ 100 mls/hr Q10H IV Last administered on 08/01/20at 22:51; Start 08/01/20 at 18:08; Stop 08/02/20 at 18:07 Ondansetron HCl (Zofran) 4 mg PRN Q6HRS PRN IVP NAUSEA/VOMITING; Start 08/02/20 at 09:00 Potassium Chloride (Klor-Con) 40 meq 1X PRN PO PER PROTOCOL; Start 08/01/20 at 20:30; Status UNV Magnesium Oxide (Magnesium Oxide) 400 mg BID PO ; Start 08/01/20 at 21:00; Stop 08/03/20 at 09:01; Status UNV Potassium Chloride/Water 100 ml @ 100 mls/hr Q1H IV ; Start 08/01/20 at 20:30; Stop 08/02/20 at 00:29; Status UNV Magnesium Sulfate 50 ml @ 25 mls/hr Q24H IV ; Start 08/01/20 at 20:30; Stop 08/03/20 at 22:29; Status UNV Potassium Chloride/Water 100 ml @ 100 mls/hr Q1H PRN IV low k; Start 08/01/20 at 20:30; Status UNV Dextrose (Dextrose 50%-Water Syringe) 12.5 gm PRN Q15MIN PRN IV SEE COMMENTS; Start 08/01/20 at 20:30 Enoxaparin Sodium (Lovenox 40mg Syringe) 40 mg Q24H SQ ; Start 08/02/20 at 09:00 Polyethylene Glycol (miraLAX PACKET) 17 gm Q6HRS PO Last administered on 08/02/20at 05:13; Start 08/01/20 at 20:30; Stop 08/04/20 at 00:00 Info (Non-Icu Electrolyte Protocol) 1 ea CONT PRN PRN MC SEE COMMENTS; Start 08/01/20 at 20:30 Acetaminophen (Tylenol) 650 mg PRN Q4HRS PRN PO FEVER > 100.5'F; Start 08/01/20 at 23:15 Active Scripts Active Keflex (Cephalexin) 500 Mg Capsule 1 Cap PO BID 7 Days Tramadol Hcl 50 Mg Tablet 50 Mg PO Q6H PRN 3 Days Reported No Known Medications Prior To Admisstion (Info) Each 1 Each MC ROS: Review of Systems Review of System REVIEW OF SYSTEMS: GENERAL: Denies weakness SKIN: No bruising, hair changes or rashes. EYES: No blurred, double or loss of vision. NOSE AND THROAT: No history of nosebleeds, hoarseness or sore throat. HEART: No history of palpitations, chest pain or shortness of breath on exertion. LUNGS: Denies cough, hemoptysis, wheezing or shortness of breath. GASTROINTESTINAL: Denies changes in appetite, nausea, vomiting, diarrhea or constipation. GENITOURINARY: No history of frequency, urgency, hesitancy or nocturia. NEUROLOGIC: Denies history of numbness, tingling, or tremor. PSYCHIATRIC: No history of panic, anxiety or depression. ENDOCRINE: No history of heat or cold intolerance, polyuria or polydipsia. EXTREMITIES: Denies joint pain, pain on walking or stiffness. Physical Exam: Vital Signs: Vital Signs Date Time Temp Pulse Resp B/P (MAP) Pulse Ox O2 Delivery O2 Flow Rate FiO2 08/02/20 07:41 Room Air 08/02/20 05:48 16 08/02/20 02:54 100.3 87 78/53 (61) 97 100.3 Physcial Exam: GEN: No apparent distress. Alert and oriented HEENT: Normal cephalic, atraumatic, external auditory canals are patent EYES: Extraocular muscles are intact, pupil are equally round and reactive to light and accommodation MUSCULOSKELETAL: Well developed , well nourished, good range of motion ENDOCRINE: No thyromegaly was palpated LYMPHATICS: No cervical chain or axillary nodes were noted HEMATOPOIETIC: No bruising NECK: Supple, no JVD, no thyromegaly was noted LUNGS: Clear to auscultation in all lung baker without rhonchi or wheezing HEART: RRR, S!, S2 present. Peripheral pulses intact, no obvious murmurs noted ABDOMEN: Soft, right lower quadrant tenderness positive bowel sounds, no organomegaly, normal bowel sounds EXTREMITIES: Without clubbing, cyanosis, or edema. Pedal pulses intact. Negative Homans sign NEUROLOGIC: Normal speech and tone. A&O x 3, moves all extremities, no obvious focal deficits PSYCHIATRIC: Normal affect, normal mood. Stable SKIN: No ulcerations or rashes, good skin turgor, no jaundice VASCULAR: Good capillary refill, neurovascular bundle appears to be intact Labs: Labs: Laboratory Tests Test 08/01/20 16:45 08/02/20 02:38 White Blood Count 10.9 x10^3/uL (4.0-11.0) 8.3 x10^3/uL (4.0-11.0) Red Blood Count 4.47 x10^6/uL (3.50-5.40) 4.11 x10^6/uL (3.50-5.40) Hemoglobin 13.6 g/dL (12.0-15.5) 12.7 g/dL (12.0-15.5) Hematocrit 39.8 % (36.0-47.0) 36.6 % (36.0-47.0) Mean Corpuscular Volume 89 fL (79-100) 89 fL (79-100) Mean Corpuscular Hemoglobin 30 pg (25-35) 31 pg (25-35) Mean Corpuscular Hemoglobin Concent 34 g/dL (31-37) 35 g/dL (31-37) Red Cell Distribution Width 12.9 % (11.5-14.5) 12.9 % (11.5-14.5) Platelet Count 165 x10^3/uL (140-400) 144 x10^3/uL (140-400) Neutrophils (%) (Auto) 87 % (31-73) 85 % (31-73) Lymphocytes (%) (Auto) 9 % (24-48) 9 % (24-48) Monocytes (%) (Auto) 4 % (0-9) 6 % (0-9) Eosinophils (%) (Auto) 0 % (0-3) 0 % (0-3) Basophils (%) (Auto) 0 % (0-3) 0 % (0-3) Neutrophils # (Auto) 9.5 x10^3/uL (1.8-7.7) 7.0 x10^3/uL (1.8-7.7) Lymphocytes # (Auto) 0.9 x10^3/uL (1.0-4.8) 0.7 x10^3/uL (1.0-4.8) Monocytes # (Auto) 0.4 x10^3/uL (0.0-1.1) 0.5 x10^3/uL (0.0-1.1) Eosinophils # (Auto) 0.0 x10^3/uL (0.0-0.7) 0.0 x10^3/uL (0.0-0.7) Basophils # (Auto) 0.0 x10^3/uL (0.0-0.2) 0.0 x10^3/uL (0.0-0.2) Segmented Neutrophils % 87 % (35-66) Band Neutrophils % 1 % (0-9) Lymphocytes % 8 % (24-48) Monocytes % 4 % (0-10) Platelet Estimate Adequate (ADEQUATE) Prothrombin Time 12.8 SEC (11.7-14.0) Prothromb Time International Ratio 1.0 (0.8-1.1) Urine Collection Type Unknown Urine Color Yellow Urine Clarity Clear Urine pH 7.0 (<5.0-8.0) Urine Specific [place] 1.015 (1.000-1.030) Urine Protein Negative mg/dL (NEG-TRACE) Urine Glucose (UA) Negative mg/dL (NEG) Urine Ketones (Stick) 15 mg/dL (NEG) Urine Blood Negative (NEG) Urine Nitrite Negative (NEG) Urine Bilirubin Negative (NEG) Urine Urobilinogen Dipstick 0.2 mg/dL (0.2 mg/dL) Urine Leukocyte Esterase Small (NEG) Urine RBC 0 /HPF (0-2) Urine WBC 1-4 /HPF (0-4) Urine Squamous Epithelial Cells Many /LPF Urine Bacteria Few /HPF (0-FEW) Sodium Level 137 mmol/L (136-145) 138 mmol/L (136-145) Potassium Level 3.3 mmol/L (3.5-5.1) 3.2 mmol/L (3.5-5.1) Chloride Level 101 mmol/L (98-107) 103 mmol/L (98-107) Carbon Dioxide Level 26 mmol/L (21-32) 25 mmol/L (21-32) Anion Gap 10 (6-14) 10 (6-14) Blood Urea Nitrogen 9 mg/dL (7-20) 10 mg/dL (7-20) Creatinine 0.7 mg/dL (0.6-1.0) 0.7 mg/dL (0.6-1.0) Estimated GFR (Cockcroft-Gault) 92.7 92.7 BUN/Creatinine Ratio 13 (6-20) Glucose Level 87 mg/dL (70-99) 92 mg/dL (70-99) Calcium Level 9.2 mg/dL (8.5-10.1) 8.6 mg/dL (8.5-10.1) Total Bilirubin 1.1 mg/dL (0.2-1.0) Aspartate Amino Transf (AST/SGOT) 23 U/L (15-37) Alanine Aminotransferase (ALT/SGPT) 29 U/L (14-59) Alkaline Phosphatase 39 U/L (46-116) Total Protein 7.8 g/dL (6.4-8.2) Albumin 4.1 g/dL (3.4-5.0) Albumin/Globulin Ratio 1.1 (1.0-1.7) Lipase 89 U/L (73-393) Phosphorus Level 2.7 mg/dL (2.6-4.7) Magnesium Level 2.0 mg/dL (1.8-2.4) Laboratory Tests Test 08/01/20 16:45 08/02/20 02:38 White Blood Count 10.9 x10^3/uL (4.0-11.0) 8.3 x10^3/uL (4.0-11.0) Red Blood Count 4.47 x10^6/uL (3.50-5.40) 4.11 x10^6/uL (3.50-5.40) Hemoglobin 13.6 g/dL (12.0-15.5) 12.7 g/dL (12.0-15.5) Hematocrit 39.8 % (36.0-47.0) 36.6 % (36.0-47.0) Mean Corpuscular Volume 89 fL (79-100) 89 fL (79-100) Mean Corpuscular Hemoglobin 30 pg (25-35) 31 pg (25-35) Mean Corpuscular Hemoglobin Concent 34 g/dL (31-37) 35 g/dL (31-37) Red Cell Distribution Width 12.9 % (11.5-14.5) 12.9 % (11.5-14.5) Platelet Count 165 x10^3/uL (140-400) 144 x10^3/uL (140-400) Neutrophils (%) (Auto) 87 % (31-73) 85 % (31-73) Lymphocytes (%) (Auto) 9 % (24-48) 9 % (24-48) Monocytes (%) (Auto) 4 % (0-9) 6 % (0-9) Eosinophils (%) (Auto) 0 % (0-3) 0 % (0-3) Basophils (%) (Auto) 0 % (0-3) 0 % (0-3) Neutrophils # (Auto) 9.5 x10^3/uL (1.8-7.7) 7.0 x10^3/uL (1.8-7.7) Lymphocytes # (Auto) 0.9 x10^3/uL (1.0-4.8) 0.7 x10^3/uL (1.0-4.8) Monocytes # (Auto) 0.4 x10^3/uL (0.0-1.1) 0.5 x10^3/uL (0.0-1.1) Eosinophils # (Auto) 0.0 x10^3/uL (0.0-0.7) 0.0 x10^3/uL (0.0-0.7) Basophils # (Auto) 0.0 x10^3/uL (0.0-0.2) 0.0 x10^3/uL (0.0-0.2) Segmented Neutrophils % 87 % (35-66) Band Neutrophils % 1 % (0-9) Lymphocytes % 8 % (24-48) Monocytes % 4 % (0-10) Platelet Estimate Adequate (ADEQUATE) Prothrombin Time 12.8 SEC (11.7-14.0) Prothromb Time International Ratio 1.0 (0.8-1.1) Urine Collection Type Unknown Urine Color Yellow Urine Clarity Clear Urine pH 7.0 (<5.0-8.0) Urine Specific [place] 1.015 (1.000-1.030) Urine Protein Negative mg/dL (NEG-TRACE) Urine Glucose (UA) Negative mg/dL (NEG) Urine Ketones (Stick) 15 mg/dL (NEG) Urine Blood Negative (NEG) Urine Nitrite Negative (NEG) Urine Bilirubin Negative (NEG) Urine Urobilinogen Dipstick 0.2 mg/dL (0.2 mg/dL) Urine Leukocyte Esterase Small (NEG) Urine RBC 0 /HPF (0-2) Urine WBC 1-4 /HPF (0-4) Urine Squamous Epithelial Cells Many /LPF Urine Bacteria Few /HPF (0-FEW) Sodium Level 137 mmol/L (136-145) 138 mmol/L (136-145) Potassium Level 3.3 mmol/L (3.5-5.1) 3.2 mmol/L (3.5-5.1) Chloride Level 101 mmol/L (98-107) 103 mmol/L (98-107) Carbon Dioxide Level 26 mmol/L (21-32) 25 mmol/L (21-32) Anion Gap 10 (6-14) 10 (6-14) Blood Urea Nitrogen 9 mg/dL (7-20) 10 mg/dL (7-20) Creatinine 0.7 mg/dL (0.6-1.0) 0.7 mg/dL (0.6-1.0) Estimated GFR (Cockcroft-Gault) 92.7 92.7 BUN/Creatinine Ratio 13 (6-20) Glucose Level 87 mg/dL (70-99) 92 mg/dL (70-99) Calcium Level 9.2 mg/dL (8.5-10.1) 8.6 mg/dL (8.5-10.1) Total Bilirubin 1.1 mg/dL (0.2-1.0) Aspartate Amino Transf (AST/SGOT) 23 U/L (15-37) Alanine Aminotransferase (ALT/SGPT) 29 U/L (14-59) Alkaline Phosphatase 39 U/L (46-116) Total Protein 7.8 g/dL (6.4-8.2) Albumin 4.1 g/dL (3.4-5.0) Albumin/Globulin Ratio 1.1 (1.0-1.7) Lipase 89 U/L (73-393) Phosphorus Level 2.7 mg/dL (2.6-4.7) Magnesium Level 2.0 mg/dL (1.8-2.4) Images: Images CT abdomen pelvis Impression: 1. There is no hydronephrosis or urolithiasis. There are hypodense foci of the adnexal regions bilaterally, right greater than left, statistically more likely due to cysts. 2. There is retained stool greater of the right colon. There is appearance of degree of small bowel wall thickening in the right abdomen as could be seen with enteritis in the appropriate clinical setting. There is no CT evidence of acute appendicitis. Assessment/Plan Assessment/Plan Sepsis due to colitis Constipation Hypokalemia Elevated alkaline phosphatase Admit to medicine for further management Continue MiraLAX every 6 hours until adequate bowel movement Serial abdominal exams Clear liquid diet Appreciate GI recommendationscontinue MiraLAX and lubiprostone Lovenox for DVT prophylaxis ADA diet Full code Discussed with RN and SW Disposition pending bowel movement and tolerating regular diet before discharge Surrogate decision maker is the Justifications for Admission Abdominal Pain Indications Is patient in severe pain?: Yes Justification for admission: Patient has severe pain that requires (parenteral analgesic-please state analgesics and route) at least every 4 hours necessitating inpatient level of care. Other Justification GABRIELLE JEFFERSON MD Aug 02, 2020 07:54
--- NOTE | 2020-08-02 08:41 | PDOC2 ---
GI CONSULT Date of Service: DATE: 08/02/20 TIME: 08:41 Reason For Consult: abd pain w/ fever HPI: HPI: 40 y/o female admitted through ER. Translation from family on cell/speakerphone. RLQ burning pain and sharp right lower back pain started Friday. Given atbx for UTI - no help. Pain worse w/ movement. Some nausea w/o vomiting. Stools are small and hard. H/o occasional red blood w/ hard stools. No weight loss. No previous EGD or colonoscopy. No GB, liver, pancreas, or PUD history. PMH: PMH: UTI partial hysterectomy, ?right lumpectomy FH: Family History: No pertinent hx Social History: Smoke: No ALCOHOL: none ROS: GEN: +fever HEENT: Denies blurred vision, sore throat CV: Denies chest pain RESP: Denies shortness of air, cough GI: Per HPI : Denies hematuria, dysuria ENDO: Denies weight changes NEURO: Denies confusion, dizziness MSK: Denies weakness, joint pain/swelling SKIN: Denies jaundice, pruritus Vitals: Vitals: Vital Signs Date Time Temp Pulse Resp B/P (MAP) Pulse Ox O2 Delivery O2 Flow Rate FiO2 08/02/20 07:41 Room Air 08/02/20 07:00 98.8 86 16 90/48 (62) 99 98.8 Labs: Labs: Laboratory Tests Test 08/01/20 16:45 08/02/20 02:38 White Blood Count 10.9 x10^3/uL (4.0-11.0) 8.3 x10^3/uL (4.0-11.0) Red Blood Count 4.47 x10^6/uL (3.50-5.40) 4.11 x10^6/uL (3.50-5.40) Hemoglobin 13.6 g/dL (12.0-15.5) 12.7 g/dL (12.0-15.5) Hematocrit 39.8 % (36.0-47.0) 36.6 % (36.0-47.0) Mean Corpuscular Volume 89 fL (79-100) 89 fL (79-100) Mean Corpuscular Hemoglobin 30 pg (25-35) 31 pg (25-35) Mean Corpuscular Hemoglobin Concent 34 g/dL (31-37) 35 g/dL (31-37) Red Cell Distribution Width 12.9 % (11.5-14.5) 12.9 % (11.5-14.5) Platelet Count 165 x10^3/uL (140-400) 144 x10^3/uL (140-400) Neutrophils (%) (Auto) 87 % (31-73) 85 % (31-73) Lymphocytes (%) (Auto) 9 % (24-48) 9 % (24-48) Monocytes (%) (Auto) 4 % (0-9) 6 % (0-9) Eosinophils (%) (Auto) 0 % (0-3) 0 % (0-3) Basophils (%) (Auto) 0 % (0-3) 0 % (0-3) Neutrophils # (Auto) 9.5 x10^3/uL (1.8-7.7) 7.0 x10^3/uL (1.8-7.7) Lymphocytes # (Auto) 0.9 x10^3/uL (1.0-4.8) 0.7 x10^3/uL (1.0-4.8) Monocytes # (Auto) 0.4 x10^3/uL (0.0-1.1) 0.5 x10^3/uL (0.0-1.1) Eosinophils # (Auto) 0.0 x10^3/uL (0.0-0.7) 0.0 x10^3/uL (0.0-0.7) Basophils # (Auto) 0.0 x10^3/uL (0.0-0.2) 0.0 x10^3/uL (0.0-0.2) Segmented Neutrophils % 87 % (35-66) Band Neutrophils % 1 % (0-9) Lymphocytes % 8 % (24-48) Monocytes % 4 % (0-10) Platelet Estimate Adequate (ADEQUATE) Prothrombin Time 12.8 SEC (11.7-14.0) Prothromb Time International Ratio 1.0 (0.8-1.1) Urine Collection Type Unknown Urine Color Yellow Urine Clarity Clear Urine pH 7.0 (<5.0-8.0) Urine Specific [place] 1.015 (1.000-1.030) Urine Protein Negative mg/dL (NEG-TRACE) Urine Glucose (UA) Negative mg/dL (NEG) Urine Ketones (Stick) 15 mg/dL (NEG) Urine Blood Negative (NEG) Urine Nitrite Negative (NEG) Urine Bilirubin Negative (NEG) Urine Urobilinogen Dipstick 0.2 mg/dL (0.2 mg/dL) Urine Leukocyte Esterase Small (NEG) Urine RBC 0 /HPF (0-2) Urine WBC 1-4 /HPF (0-4) Urine Squamous Epithelial Cells Many /LPF Urine Bacteria Few /HPF (0-FEW) Sodium Level 137 mmol/L (136-145) 138 mmol/L (136-145) Potassium Level 3.3 mmol/L (3.5-5.1) 3.2 mmol/L (3.5-5.1) Chloride Level 101 mmol/L (98-107) 103 mmol/L (98-107) Carbon Dioxide Level 26 mmol/L (21-32) 25 mmol/L (21-32) Anion Gap 10 (6-14) 10 (6-14) Blood Urea Nitrogen 9 mg/dL (7-20) 10 mg/dL (7-20) Creatinine 0.7 mg/dL (0.6-1.0) 0.7 mg/dL (0.6-1.0) Estimated GFR (Cockcroft-Gault) 92.7 92.7 BUN/Creatinine Ratio 13 (6-20) Glucose Level 87 mg/dL (70-99) 92 mg/dL (70-99) Calcium Level 9.2 mg/dL (8.5-10.1) 8.6 mg/dL (8.5-10.1) Total Bilirubin 1.1 mg/dL (0.2-1.0) Aspartate Amino Transf (AST/SGOT) 23 U/L (15-37) Alanine Aminotransferase (ALT/SGPT) 29 U/L (14-59) Alkaline Phosphatase 39 U/L (46-116) Total Protein 7.8 g/dL (6.4-8.2) Albumin 4.1 g/dL (3.4-5.0) Albumin/Globulin Ratio 1.1 (1.0-1.7) Lipase 89 U/L (73-393) Phosphorus Level 2.7 mg/dL (2.6-4.7) Magnesium Level 2.0 mg/dL (1.8-2.4) Allergies: Coded Allergies: No Known Drug Allergies (Unverified , 01/26/15) Medications: Current Medications Medications (Trade) Dose Ordered Sig/Farida Route PRN Reason Start Time Stop Time Status Last Admin Dose Admin Sodium Chloride 1,000 ml @ 1,000 mls/hr Q1H IV 08/01/20 16:46 08/01/20 17:45 DC 08/01/20 17:19 Fentanyl Citrate (Fentanyl 2ml Vial) 50 mcg 1X ONCE IVP 08/01/20 17:00 08/01/20 17:01 DC 08/01/20 17:06 Ondansetron HCl (Zofran) 4 mg 1X ONCE IVP 08/01/20 17:00 08/01/20 17:01 DC 08/01/20 17:06 Acetaminophen (Tylenol) 1,000 mg 1X ONCE PO 08/01/20 17:00 08/01/20 17:01 DC 08/01/20 17:07 Piperacillin Sod/ Tazobactam Sod 3.375 gm/Sodium Chloride 50 ml @ 100 mls/hr 1X ONCE IV 08/01/20 18:15 08/01/20 18:44 DC 08/01/20 19:00 Fentanyl Citrate (Fentanyl 2ml Vial) 50 mcg PRN Q1HR PRN IV PAIN 08/01/20 18:15 08/02/20 18:14 08/02/20 05:14 Sodium Chloride 1,000 ml @ 100 mls/hr Q10H IV 08/01/20 18:08 08/02/20 18:07 08/01/20 22:51 Polyethylene Glycol (miraLAX PACKET) 17 gm Q6HRS PO 08/01/20 20:30 08/04/20 00:00 08/02/20 05:13 Imaging: Imaging: CT A/P Impression: 1. There is no hydronephrosis or urolithiasis. There are hypodense foci of the adnexal regions bilaterally, right greater than left, statistically more likely due to cysts. 2. There is retained stool greater of the right colon. There is appearance of degree of small bowel wall thickening in the right abdomen as could be seen with enteritis in the appropriate clinical setting. There is no CT evidence of acute appendicitis. PE: GEN: NAD HEENT: Atraumatic, PERRL LUNGS: CTAB HEART: RRR ABD: NABS, S/ND, mild RLQ discomfort EXTREMITY: No edema SKIN: No rashes, no jaundice NEURO/PSYCH: A & O 3 A/P: A/P: RLQ pain, right lower back pain, fever ?UTI Abnormal CT - retained stool greater of right colon, possible enteritis, probable bilateral adnexal cysts CRC screen - average risk Constipation, intermittent blood w/ hard stool R/o COVID-19 -- Dr. Wall saw earlier this morning, discussed w/ him - try Miralax (already ordered) and Amitiza for retained stool. Outpt colonoscopy for intermittent rectal bleeding (note normal Hgb). ADAT. COLTON TEJADA Aug 02, 2020 08:41
[2020-08-02] MEDS ORDERED: ONDANSETRON PF 4 MG/2 ML VIAL. IVP PRN (09:00)
--- NOTE | 2020-08-02 09:39 | NUR ---
SW following. Discussed with RN, pt from home with family, room air, clear liquid diet. Pt likely needing to have a BM. If pt has a BM today and feels better, pt can discharge home. RN advised no SW needs at this time. SW will continue to follow.
[2020-08-02] MEDS: ENOXAPARIN 40 MG/0.4 ML SYRINGE. SQ SCH (10:16)
[2020-08-02 11:00] VITALS: BP 98/58
[2020-08-02] MEDS: LUBIPROSTONE 24 MCG CAPSULE PO SCH ×2 (12:55→17:40)
[2020-08-02] MEDS: IV NORMAL SALINE 1000ML BAG 1,000 ML IV SCH (12:56)
[2020-08-02 15:00] VITALS: BP 93/57
[2020-08-02 19:00] VITALS: BP 95/60
[2020-08-02 23:00] VITALS: BP 81/45
[2020-08-03 03:00] VITALS: BP 100/58
[2020-08-03] MEDS: POLYETHYLENE GLYCOL 3350 17 GM PACKET. PO SCH ×2 (06:00)
--- NOTE | 2020-08-03 06:03 | NUR ---
Miralax non-administered as patient reports multiple bowel movements this shift.
[2020-08-03 07:00] VITALS: BP 92/53
[2020-08-03] MEDS: LUBIPROSTONE 24 MCG CAPSULE PO SCH (08:00)
--- NOTE | 2020-08-03 08:05 | DISCH ---
DISCHARGE INSTRUCTIONS Condition on Discharge Condition on Discharge: Stable Activity After Discharge Activity Instructions for Disc: Activity as tolerated Diet after Discharge Diet after Discharge: GI Soft Checks after Discharge DC Comment: CMP within 2 weeks Follow-Up Follow up with: PCP within 2 weeks of discharge Follow Up With: Senior Product Development Manager as needed GABRIELLE JEFFERSON MD Aug 03, 2020 08:05
[2020-08-03] MEDS: ENOXAPARIN 40 MG/0.4 ML SYRINGE. SQ SCH (09:00)
--- NOTE | 2020-08-03 10:09 | PDOC ---
Date of Service: DATE: 08/03/20 TIME: 10:07 Subjective: Subjective: Family present to translate. Pain resolved after stooling, eating "a lot," wants to go home. Objective: Vital Signs: Vital Signs Date Time Temp Pulse Resp B/P (MAP) Pulse Ox O2 Delivery O2 Flow Rate FiO2 08/03/20 07:36 Room Air 08/03/20 07:00 98.8 67 19 92/53 (66) 100 98.8 Labs: URINE CULTURE Final Final 20,000 CFU/ML Normal genitourinary arlette, not indicative of infection PE: GEN: NAD - very cheerful LUNGS: CTAB HEART: RRR ABD: non-tender NEURO/PSYCH: A & O 3 A/P: RLQ pain, right lower back pain - resolved -- DC per primary. Consider Miralax QD/PRN at home. Outpt colonoscopy re: intermittent rectal bleeding. Justicifation of Admission Dx: Justifications for Admission: Justification of Admission Dx: Yes COLTON TEJADA Aug 03, 2020 10:09
--- NOTE | 2020-08-03 10:17 | NUR ---
SW following. Discussed with RN, pt from home with family, room air, GI soft. Pt has had multiple bowel movements and is feeling much better. Anticipate discharge home today with self care. RN advised no SW needs.
[2020-08-03] MEDS ORDERED: POLY17PO28 PO (10:50)
[2020-08-03 11:00] VITALS: BP 95/56
[2020-08-03] MEDS ORDERED: POTASSIUM CHLORIDE 20 MEQ TABLET.ER. PO ONE (11:15)
--- NOTE | 2020-08-03 12:06 | NUR ---
Pt discharged home with self care. Discharge instructions and prescriptions discussed with daughter who translated. Pt denied questions. IV removed. Pt ambulated to ED entrance.
--- NOTE | 2020-08-03 13:53 | PDOC3 ---
[facility]-Discharge Summary Date of Admission: Date of Admission: Aug 01, 2020 Date of Discharge: Date of Discharge: Aug 03, 2020 Admission Diagnosis: Admitting Diagnosis: Sepsis due to colitis Constipation Hypokalemia Elevated alkaline phosphatase Discharge Diagnosis: Discharge Diagnosis: Enterocolitis due to constipation Constipation Hypokalemia Elevated alkaline phosphatase Consults: Consults: GI Hospital Course: Hospital Course: 40 year old female who presents with patient states for the last 4 days she has had right lower quadrant pain that wraps around to her right back. She states that 2 days ago she went to an urgent care and they diagnosed her with a urinary tract infection and put her on ciprofloxacin. She states she is still having the pain is not helping. Patient states that it is sharp and she rates it at an 8 out of 10. She states she is not been taking any medications to help with the pain. She states she has not had a bowel movement for the last 3 days. Patient's past medical history is a hysterectomy. She takes no medications daily. Patient states that it does burn with urination. Patient is running a fever of 100.4 in the ED. Patient denies chest pain, cough, shortness of breath, headache, dizziness, vomiting, nausea, numbness or tingling, diarrhea Patient was admitted for further management and GI evaluation. GI started MiraLAX and lubiprostone and eventually patient did have several bowel moveme nts. Her abdominal pain did improve. She had no other complaints at the time and she was tolerating GI soft diet. The rest of her hospital course was uneventful. Patient will have follow-up with outpatient colonoscopy for her intermittent rectal bleeding. Disposition: Disposition/Orders: D/C to Home Activity: Activity: Resume previous activity Diet: Diet: Soft Medications: Home Meds Active Scripts Polyethylene Glycol 3350 (POLYETHYLENE GLYCOL 3350) 17 Gm Powd.pack, 17 GM PO Q6HRS PRN for CONSTIPATION for 10 Days, #40 PKT Prov:GABRIELLE JEFFERSON MD 08/03/20 Reported Medications Info (NO KNOWN MEDICATIONS PRIOR TO ADMISSTION) Each, 1 EACH MC, EACH 01/26/15 Discontinued Scripts Cephalexin (KEFLEX) 500 Mg Capsule, 1 CAP PO BID for 7 Days, #14 CAP 0 Refills Prov:TAE ROMERO [employer] MANAGER 08/25/19 Tramadol Hcl (TRAMADOL HCL) 50 Mg Tablet, 50 MG PO Q6H PRN for PAIN for 3 Days, #15 TAB 0 Refills Prov:OSCAR GRIMES DO 01/16/18 Scheduled PRN Polyethylene Glycol 3350 (Polyethylene Glycol 3350), 17 GM PO Q6HRS PRN for CONSTIPATION Miscellaneous Medications Info (No Known Medications Prior To Admisstion), 1 EACH MC, (Reported) Discontinued Medications Cephalexin (Keflex), 1 CAP PO BID Tramadol Hcl (Tramadol Hcl), 50 MG PO Q6H PRN for PAIN Total Time: Total Time: Total time spent was 20 minutes in preparing scripts, discharge planning with SWI and RN and preparing this discharge summary Patient seen and examined on day of discharge. No acute abnormal findings. Justicifation of Admission Dx: Justifications for Admission: Justification of Admission Dx: Yes GABRIELLE JEFFERSON MD Aug 03, 2020 13:53
== END 2020-08-03 12:00 | disposition home or self-care (01) | DRG 872 ==
LOC: ER 16:18 → OBSVTOIN 18:06 → ED HOLD 18:06 → 4 NORTH 20:21
PROVIDERS: ADMIT Internal Medicine; ATTEND Internal Medicine
DX: A41.9 Sepsis, unspecified organism (principal); K52.9 Noninfective gastroenteritis and colitis, unspecified; K59.00 Constipation, unspecified; E87.6 Hypokalemia; R74.8 Abnormal levels of other serum enzymes; M54.5 Low back pain; Z90.711 Acquired absence of uterus with remaining cervical stump; Z90.721 Acquired absence of ovaries, unilateral
CPT/HCPCS: 36415; 74176; 80048; 80053; 81001; 83690; 83735; 84100; 85007; 85025; 85610; 87086; 96361; 96365; 96375; 99285; J1650; J2405; J2543; J3010; J7030; G0378

== ENCOUNTER → 2020-10-25 | Day surgery (SDC) | payer BC ==
[~2020-10-25] MED LIST changes: +IV RINGERS,LACTATED 1000ML 1,000 ML IV SCH; +POLY17PO28 PO; +PROPOFOL 10 MG/ML (20ML) VIAL. IV ONE
[2020-10-25 09:00] VITALS: BP 109/63
== END | disposition home or self-care (01) ==
LOC: ENDOS 07:27
PROVIDERS: ATTEND Internal Medicine Gastroenterology
DX: K92.1 Melena (principal); K92.2 Gastrointestinal hemorrhage, unspecified; Z90.710 Acquired absence of both cervix and uterus; Z98.890 Other specified postprocedural states; Z79.899 Other long term (current) drug therapy
CPT/HCPCS: 45378; J2704